=== PATIENT | male | born 1970 | race Caucasian/White ===

== ENCOUNTER 2018-05-09 08:11 | Outpatient (REF) | payer OTHER, SELFPAY ==
[2018-05-09 12:15] LABS: Abs Immature Grans 0.01 k/cumm (0.0-0.09); Absolute Basophil Count 0.03 k/cumm (0.0-0.2); Absolute Eosinophil Count 0.22 k/cumm (0.0-0.7); Absolute Lymphocyte Count 1.91 k/cumm (1.2-3.4); Absolute Monocyte Count 0.74 k/cumm (0.11-0.7); Absolute Neutrophil Count 4.14 k/cumm (1.2-6.7); Basophils % 0.4; Eosinophils % 3.1; HCT 45.8 % (40.0-50.0); HGB 15.6 g/dL (13.5-17.5); Immature Grans % 0.1; Lymphocytes % 27.1; Mean Corp. HGB Concentration 34.1 g/dL (32.0-36.0); Mean Corpuscular Hemoglobin 30.3 pg (27.0-33.0); Mean Corpuscular Volume 88.9 fL (80-95); Mean Platelet Volume 10.2 fL (8.0-11.0); Monocytes % 10.5; Neutrophils % 58.8; Platelet Count 253 x1000/uL (130-400); RBC 5.15 m/cumm (4.50-6.00); RBC Distribution Width 12.6 % (11.8-14.1); White Blood Cell Count 7.05 k/cumm (4.4-10.8)
[2018-05-09 12:37] LABS: ALT 26 U/L (12-78); AST 26 U/L (15-37); Albumin 4.3 g/dL (3.4-5.0); Alkaline Phosphatase 92 U/L (46-116); Anion Gap 8.5 mmol/L (3-11); BUN 17 mg/dL (7-18); Bilirubin, Total 0.7 mg/dL (0.2-1.0); CO2 28.5 mmol/L (21.0-32.0); CREATININE 1.08 mg/dL (0.70-1.30); Calcium 9.5 mg/dL (8.5-10.1); Chloride 103 mmol/L (98-107); Cholesterol 204 mg/dL (50-200); Glucose 92 mg/dL (70-100); HDL Cholesterol 42 mg/dL (40-60); LDL CHOLESTEROL 141 mg/dL (<100); Potassium 4.3 mmol/L (3.5-5.1); Sodium 140 mmol/L (136-145); TSH (W/Ref FT4) 1.02 uIU/mL (0.358-3.74); Total Protein 7.7 g/dL (6.4-8.2); Triglyceride 102 mg/dL (30-150)
[2018-05-10 11:34] LABS: Lyme Ab w Rflx to Lyme Confirm Negative
[2018-05-11 18:06] LABS: Anaplasma phagocytophilum Negative (Negative); B. miyamotoi PCR Negative (Negative); Babesia divergens/MO-1 Negative (Negative); Babesia duncani Negative (Negative); Babesia microti Negative (Negative); Ehrlichia chaffeensis Negative (Negative); Ehrlichia ewingii/canis Negative (Negative); Ehrlichia muris eauclairensis Negative (Negative)
== END 2018-05-09 08:31 ==
LOC: NCHCN 08:11
PROVIDERS: PCP Nurse Practitioner Family; Visit Provider Nurse Practitioner Family
DX: Z00.00 Encounter for general adult medical examination without abnormal findings (principal); M25.539 Pain in unspecified wrist; E78.5 Hyperlipidemia, unspecified; R53.83 Other fatigue
CPT/HCPCS: 80053; 80061; 83721; 84443; 85025; 86618; 87798

== ENCOUNTER 2018-05-15 16:39 | Outpatient (REF) | payer OTHER, SELFPAY ==
[2018-05-17 09:59] LABS: HIV-1/2 Ag & Ab Screen Negative (NEGAT)
[2018-05-17 12:28] LABS: Chlamydia Result Negative; GC Result Negative; Specimen Description URINE
[2018-05-17 12:49] LABS: Syphilis Serology (RPR) Negative (Negative)
== END 2018-05-15 16:59 ==
LOC: NCHCN 16:39
PROVIDERS: PCP Nurse Practitioner Family; Visit Provider Nurse Practitioner Family
DX: Z11.4 Encounter for screening for human immunodeficiency virus [HIV] (principal); Z11.3 Encounter for screening for infections with a predominantly sexual mode of transmission
CPT/HCPCS: 87389; 87491; 87591; 86592

== ENCOUNTER 2019-05-13 13:19 | Outpatient (REF) | payer SELFPAY ==
[2019-05-13 14:14] LABS: Abs Immature Grans 0.01 k/cumm (0.0-0.09); Absolute Basophil Count 0.03 k/cumm (0.0-0.2); Absolute Lymphocyte Count 2.34 k/cumm (1.2-3.4); Absolute Neutrophil Count 3.39 k/cumm (1.2-6.7); Basophils % 0.4; Eosinophils % 4.5; HGB 15.1 g/dL (13.5-17.5); Immature Grans % 0.1 %; Lymphocytes % 35.1; Mean Corp. HGB Concentration 33.6 g/dL (32.0-36.0); Mean Corpuscular Hemoglobin 29.8 pg (27.0-33.0); Mean Corpuscular Volume 88.8 fL (80-95); Mean Platelet Volume 10.4 fL (8.0-11.0); Neutrophils % 50.9; Platelet Count 289 x1000/uL (130-400); RBC 5.07 m/cumm (4.50-6.00); RBC Distribution Width 12.9 % (11.8-14.1); White Blood Cell Count 6.67 k/cumm (4.4-10.8)
[2019-05-13 14:18] LABS: ALT 30 U/L (16-63); AST 26 U/L (15-37); Albumin 4.1 g/dL (3.4-5.0); Alkaline Phosphatase 88 U/L (46-116); Anion Gap 11.5 mmol/L (3-11); BUN 15 mg/dL (7-18); Bilirubin, Total 0.7 mg/dL (0.2-1.0); CO2 26.5 mmol/L (21.0-32.0); CREATININE 0.88 mg/dL (0.70-1.30); Calcium 9.2 mg/dL (8.5-10.1); Calculated LDL 144 mg/dL (<100); Chloride 102 mmol/L (98-107); Cholesterol 214 mg/dL (<200); Glucose 99 mg/dL (74-106); HDL Cholesterol 41 mg/dL (40-60); Potassium 3.9 mmol/L (3.5-5.1); Sodium 140 mmol/L (136-145); Total Protein 7.4 g/dL (6.4-8.2); Triglyceride 146 mg/dL (<150)
== END 2019-05-13 13:39 ==
LOC: NCHCN 13:19
PROVIDERS: PCP Nurse Practitioner Family; Visit Provider Nurse Practitioner Family
DX: Z00.00 Encounter for general adult medical examination without abnormal findings (principal); Z13.228 Encounter for screening for other metabolic disorders; Z13.220 Encounter for screening for lipoid disorders; Z13.0 Encounter for screening for diseases of the blood and blood-forming organs and certain disorders involving the immune mechanism
CPT/HCPCS: 80053; 80061; 85025

== ENCOUNTER 2019-05-20 13:15 | Outpatient (REF) | payer OTHER, SELFPAY ==
[2019-05-22 11:53] LABS: HIV-1/2 Ag & Ab Screen Negative (Negative); Hepatitis C Ab w Rflx HCV PCR Negative (Negative)
== END 2019-05-20 13:35 ==
LOC: NCHCN 13:15
PROVIDERS: PCP Nurse Practitioner Family; Visit Provider Nurse Practitioner Family
DX: Z11.3 Encounter for screening for infections with a predominantly sexual mode of transmission (principal); Z11.4 Encounter for screening for human immunodeficiency virus [HIV]; Z11.59 Encounter for screening for other viral diseases
CPT/HCPCS: 86803; 87389

== ENCOUNTER 2019-11-16 16:15 | Emergency (ER) | payer OTHER, SELFPAY ==
[2019-11-16] MEDS: HYDROmorphone 2 MG/ML VIAL (16:20)
[2019-11-16 16:22] VITALS: BP 119/74; PULSE 80; RESP 20; TEMP 37.1; O2SAT 99
--- NOTE | 2019-11-16 16:29 | W.ED.GENAD ---
Discharge Plan Disposition Patient Disposition: HOME Condition: Stable Discharge Details Chief Complaint: Orthopedic Clinical Impression: Closed dislocation of left patella Primary Care Provider: Fer Mccarthy ED Provider: Seth Lechuga Home Meds and New Rx's Prescriptions: No Action No Known Home Meds RF: 0 Discharge Instructions Instructions: Patellar Dislocation (ED), Knee Immobilizer (ED) Additional Instructions: Please use knee immobilizer and crutches until cleared. Follow-up with orthopedics. Call for an appointment. Please take acetaminophen (tylenol) - 650mg every 6 hours by mouth as needed for pain. Please take ibuprofen over the counter. Take 600mg by mouth every 6 hours as needed for pain. Referrals: [facility] [Provider Group] Medical Decision Making 49-year-old male here with left patellar dislocation. Patellar dislocation was reduced by gently extending the leg at knee and manually reducing patella. Patellar tendon is intact. X-ray of the knee was reviewed and interpreted by radiology: No acute fracture dislocation. Knee immobilizer applied and crutches provided. Patient was instructed to follow-up with orthopedics. HPI General Mode of arrival: EMS. Date/Time Provider Initiated Documentation: 11/16/19 16:29. Limitations to Documentation: no limitations. Information obtained by: patient and EMS. HPI Narrative: 49-year-old male presents with chief complaint of left knee pain. Patient was lifting an organ and his leg gave out and he sustained dislocation. He notes in the past he dislocated his right knee but has never dislocated left patella. Pain is severe, constant since injury about 1 hour ago, worse with any attempted movement. No numbness or tingling. Related Data Home Medications Medication Instructions Recorded Confirmed Unknown [No Known Home Meds] 11/16/19 11/16/19 Allergies Allergy/AdvReac Type Severity Reaction Status Date / Time No Known Allergies Allergy Unverified 11/16/19 16:31 Review of Systems Musculoskeletal Musculoskeletal: Reports as per HPI Neurologic Neurologic: Reports as per HPI [facility] Social History Smoking/Tobacco Use Status: Never Alcohol Intake: current Alcohol Intake frequency: 0-2 drinks per day Alcohol type: beer Drug use: Never Substance use type: does not use Do you feel safe at home: Yes Do you feel safe in your relationship?: Yes Exam Const General: cooperative and uncomfortable HENMT Head: normocephalic and atraumatic Mouth: moist mucous membranes Resp Auscultation: clear to auscultation bilaterally, no rales, no rhonchi and no wheezes Cardio Rate: tachycardic Rhythm: regular rhythm Skin General skin exam: no rashes or lesions noted Neuro General: patient alert, patient awake and tone normal Extrem General: no edema Left lower extremity: knee Details: other (Left patellar dislocation) Psych Appearance: grossly normal Mental Status: mental status grossly normal Course Vital Signs Vital signs: Pain Level 10 11/16/19 16:20
--- NOTE | 2019-11-16 17:01 | NUR.NOTE ---
Nursing Note: Amy- sister in law's phone number. Verbal consent from pt to speak with her about visit and treatment today. She would transport home if needed. [phone]
--- NOTE | 2019-11-16 17:15 | DI.RAD_ITS ---
EXAM: XR KNEE LT 4V AP,LAT,ACE,PAT CLINICAL HISTORY: pain, patellar dislocation. TECHNIQUE: 2D digital imaging was performed. COMPARISON: No exams were available for comparison FINDINGS: BONES: No acute fracture is present. No bony destructive lesion is seen. JOINTS: There are mild degenerative changes.. No joint effusion is seen. SOFT TISSUE: Normal. IMPRESSION: No acute abnormality. DATA REPOSITORY: RADIATION DOSE DELIVERED:
[2019-11-16] MEDS: Acetaminophen 325 MG TAB 650 MG PO (17:24)
[2019-11-16] MEDS: Ibuprofen 600 MG TAB PO (17:24)
--- NOTE | 2019-11-16 17:46 | DI.VRAD_ITS ---
PROCEDURE INFORMATION: Exam: XR Left Knee Exam date and time: 11/16/2019 5:34 PM Age: 49 years old Clinical indication: Injury or trauma; Fall; Initial encounter; Swelling (edema); Knee; Left TECHNIQUE: Imaging protocol: XR Left knee. Views: 4 or more views. COMPARISON: No relevant prior studies available. FINDINGS: Bones/joints: No acute fracture or dislocation. There are mild marginal osteophytes. Soft tissues: Normal. IMPRESSION: No acute fracture or dislocation. Dictated and Authenticated by: Tyrone Mendoza MD. Ordering:ROMEO Ann MD
[2019-11-16 18:17] VITALS: BP 124/68; PULSE 72; RESP 16; O2SAT 98
== END 2019-11-16 18:15 | disposition home or self-care (01) ==
LOC: ER 17:49
PROVIDERS: Emergency Provider Student in an Organized Health Care Education/Training Program; PCP Nurse Practitioner Family
DX: S83.095A Other dislocation of left patella, initial encounter (principal); X50.0XXA Overexertion from strenuous movement or load, initial encounter
CPT/HCPCS: 27560; 96372; 73564; E0114; L1830

== ENCOUNTER 2020-06-14 10:15 | Outpatient (REF) | payer OTHER, SELFPAY ==
[2020-06-14 15:25] LABS: HCT 43.6 % (40.0-50.0); HGB 14.7 g/dL (13.5-17.5); MCH 30.3 pg (27.0-33.0); MCHC 33.7 % (32.0-36.0); MCV 89.9 fL (80-95); MPV 10.7 fL (8.0-11.0); Platelet Count 251 10^3/uL (130-400); RBC 4.85 10^6/uL (4.36-5.78); RDW 12.5 % (11.8-14.1); RDW-SD 41.3 fL; WBC 6.41 10^3/uL (4.4-10.8)
[2020-06-14 15:55] LABS: ALT 26 U/L (16-63); AST 20 U/L (15-37); Albumin 4.1 g/dL (3.4-5.0); Alkaline Phosphatase 74 U/L (46-116); BUN 12 mg/dL (7-18); Bilirubin, Total 0.3 mg/dL (0.2-1.0); Calcium 9.1 mg/dL (8.5-10.1); Calculated LDL 104 mg/dL (<100); Chloride 106 mmol/L (98-107); Cholesterol 163 mg/dL (<200); Glucose 94 mg/dL (74-106); HDL Cholesterol 40 mg/dL (40-60); Potassium 4.8 mmol/L (3.5-5.1); Sodium 141 mmol/L (136-145); Total Protein 7.2 g/dL (6.4-8.2); Triglyceride 96 mg/dL (<150)
[2020-06-15 09:29] LABS: HBs Antibody, Quant <3.1 mIU/mL (See Note); Hepatitis B Surface Ab Negative (See Note)
[2020-06-15 09:38] LABS: Hepatitis B Surface Ag Negative (Negative)
[2020-06-15 10:23] LABS: Hepatitis C Ab w Rflx HCV PCR Negative (Negative)
[2020-06-15 10:37] LABS: HIV-1/2 Ag & Ab Screen Negative (Negative)
[2020-06-15 11:18] LABS: Syphilis Serology (RPR) Negative (Negative)
[2020-06-15 14:13] LABS: Chlamydia Result Negative (Negative); GC Result Negative (Negative)
== END 2020-06-14 10:16 | disposition home or self-care (01) ==
LOC: NCHCN 10:15
PROVIDERS: PCP Nurse Practitioner Family; Visit Provider Nurse Practitioner Family
DX: E78.5 Hyperlipidemia, unspecified (principal); Z11.3 Encounter for screening for infections with a predominantly sexual mode of transmission; Z11.4 Encounter for screening for human immunodeficiency virus [HIV]; Z11.59 Encounter for screening for other viral diseases
CPT/HCPCS: 80053; 80061; 85027; 86706; 86803; 87340; 87389; 87491; 87591; 86592

== ENCOUNTER 2021-06-10 18:22 | Outpatient (REF) | payer OTHER, SELFPAY ==
[2021-06-10 17:29] LABS: Anion Gap 8.5 mmol/L (3-11); BUN 22 mg/dL (7-18); CO2 27.5 mmol/L (21.0-32.0); CREATININE 1.1 mg/dL (0.70-1.30); Calculated LDL 182 mg/dL (<100); Chloride 106 mmol/L (98-107); Cholesterol 244 mg/dL (<200); Glucose 92 mg/dL (74-106); HDL Cholesterol 40 mg/dL (40-60); Potassium 4.2 mmol/L (3.5-5.1); Sodium 142 mmol/L (136-145); Triglyceride 112 mg/dL (<150)
== END 2021-06-10 18:23 | disposition home or self-care (01) ==
LOC: NCHCN 18:22
PROVIDERS: PCP Nurse Practitioner Family; Visit Provider Physician Assistant
DX: E78.5 Hyperlipidemia, unspecified (principal)
CPT/HCPCS: 80048; 80061

== ENCOUNTER 2021-07-21 15:46 | Outpatient (REF) | payer OTHER, SELFPAY ==
[2021-07-22 12:46] LABS: COVID-19 RT-PCR UVMMC Result Negative (Negative)
== END 2021-07-21 15:47 | disposition home or self-care (01) ==
LOC: LBN 15:46
PROVIDERS: PCP Nurse Practitioner Family; Visit Provider Nurse Practitioner Family
DX: R05.8 Other specified cough (principal); Z20.822 Contact with and (suspected) exposure to COVID-19
CPT/HCPCS: U0003

== ENCOUNTER 2021-12-14 15:48 | Outpatient (REF) | payer OTHER, SELFPAY ==
[2021-12-14 15:52] LABS: Anion Gap 9.8 mmol/L (3-11); BUN 20 mg/dL (7-18); CO2 26.2 mmol/L (21.0-32.0); Calcium 9.5 mg/dL (8.5-10.1); Calculated LDL 139 mg/dL (<100); Chloride 102 mmol/L (98-107); Cholesterol 207 mg/dL (<200); Estimated GFR 92.26 (mL/min/1.73m2); Glucose 93 mg/dL (74-106); HDL Cholesterol 48 mg/dL (40-60); Potassium 4.7 mmol/L (3.5-5.1); Sodium 138 mmol/L (136-145); Triglyceride 102 mg/dL (<150)
== END 2021-12-14 15:49 | disposition home or self-care (01) ==
LOC: NCHCN 15:48
PROVIDERS: Visit Provider Physician Assistant
DX: E78.5 Hyperlipidemia, unspecified (principal)
CPT/HCPCS: 80048; 80061

== ENCOUNTER 2022-06-19 12:32 | Outpatient (REF) | payer OTHER, SELFPAY ==
[2022-06-19 15:06] LABS: Calculated LDL 114 mg/dL (<100); Cholesterol 207 mg/dL (<200); HDL Cholesterol 46 mg/dL (40-60); Triglyceride 235 mg/dL (<150)
== END 2022-06-19 12:33 | disposition home or self-care (01) ==
LOC: NCHCN 12:32
PROVIDERS: PCP Physician Assistant; Visit Provider Physician Assistant
DX: E78.5 Hyperlipidemia, unspecified (principal)
CPT/HCPCS: 80061

== ENCOUNTER 2023-02-19 07:32 | Day surgery (SDC) | payer OTHER, SELFPAY ==
--- NOTE | 2023-02-18 18:39 | W.PM.DSUDISC ---
Date of service: 02/19/23 Time of Service: 08:56 Discharge Plan Disposition Patient Disposition: Home Condition: Good Discharge Details Reason For Visit: screening colonoscopy Attending Provider: Misael Cavazos Primary Care Provider: Jm Messina Home Meds and New Rx's Prescriptions: Continued triamcinolone acetonide 0.5 % cream 1 applic topical BID Discontinued bisacodyl [Dulcolax (bisacodyl)] 5 mg tablet,delayed release (DR/EC) 5 mg PO ONCE Qty: 4 0RF Rx Instructions: Take per colonoscopy instructions provided by ordering providers office polyethylene glycol 3350 17 gram/dose powder 17 g PO ONCE Qty: 238 0RF Rx Instructions: Take per colonoscopy instructions provided by ordering providers office polyethylene glycol 3350 17 gram/dose powder 17 g PO ONCE Qty: 238 0RF Rx Instructions: Take per colonoscopy instructions provided by ordering providers office bisacodyl [Dulcolax (bisacodyl)] 5 mg tablet,delayed release (DR/EC) 5 mg PO ONCE Qty: 4 0RF Rx Instructions: Take per colonoscopy instructions provided by ordering providers office Discharge Instructions Instructions: Colorectal Polyps (GEN) Additional Instructions: Kaleb, we were able to complete your colonoscopy today without any difficulty. I did find 2 small polyps. I removed these both completely. In fact, 1 might not even be a true polyp. Regardless, I will send both of them off for testing to determine the true nature. Once I have that information, I will be in touch with my recommendations for your next colonoscopy. In the meantime, if you have any questions, please do not hesitate to call at any time. 1. If tolerated, consume a soft, low fiber diet for 1-2 days. [address] Do not drive, drink alcohol, operate machinery, make critical decisions, or do activities that require coordination or balance for 24 hours. 3. Because air was put into your colon during the procedure, expelling air from your rectum (passing gas or farting) is normal. 4. You may not have a bowel movement for 1-3 days because of the colonoscopy prep. This is normal. 5. Go directly to the emergency room if you notice any of the following: Develop chills (warm to touch), or if you have a thermometer and your temperature is above 101 Difficulty breathing or difficultly swallowing Persistent vomiting Severe abdominal pain, other than gas cramps Severe chest pain Black, tarry stools Any bleeding ? exceeding one tablespoon 6. Call your physician if the site where your intravenous was started becomes red, swollen, painful, and warm to touch. 7. Your physician has reviewed your pre-procedure medications. Please continue to take those medications as previously ordered. You will be given specific information/education regarding any changes to your medications before leaving. Activity:: Activity as Tolerated Diet:: As Tolerated Discharge Orders Discharge Orders: Discharge Order (Routine); Ordered 02/18/23 Ordered By: Misael Cavazos DS: Diagnosis Discharge Diagnosis (1) Screen for colon cancer: Status: Acute Asessment and Plan: I will follow-up on polypectomy results
--- NOTE | 2023-02-18 18:45 | W.COLOREPORT ---
Date of service: 02/19/23 Time of Service: 08:57 Colonoscopy Report Date of procedure: 02/19/23 Pre-op diagnosis general: screening colonoscopy Post-op diagnosis procedure note: other (Colon polyps) Procedure: Colonoscopy with polypectomy Surgeon: Misael Cavazos Anesthesia Type: General:No Airway Estimated blood loss (mL): 5 Pathology: other (0.25 cm cecal polyp, 0.5 cm polyp at 70 cm) Complications: None Disposition: same day Indications: Kaleb is 52 years old and he needs a screening colonoscopy Prep: Miralax/Dulcolax Procedure Start Time: 08:24 Procedure End Time: 08:41 Retraction Time: 9 Findings: 0.25 cm cecal polyp, 0.5 cm polyp at 70 cm Procedure Description: After the induction of monitored anesthetic care, and with the patient in left lateral decubitus position, I began by performing an external anorectal exam.? Perineum and skin were normal, as was the anal verge.? There was no evidence of external hemorrhoids.? Next, I performed a digital rectal exam.? I did not appreciate any abnormal findings.? Next, I advanced a colonoscope into the rectal vault.? I performed retroflexion.? This was normal.? Using insufflation, I then advanced the colonoscope beyond the rectal folds and into the sigmoid colon before advancing towards the cecum.? The scope was noted to be in the cecum by identification of the ileocecal valve and appendiceal orifice.? Within the cecum is a 0.25 cm flat polyp. I removed this with cold forceps polypectomy. There was no issues. I then began withdrawing the colonoscope using repeated irrigation as necessary for full evaluation of the colonic mucosa. Around 70 cm from the anal verge I identified a 0.5 cm polyp. ?It appeared mostly flat, but slightly elevated in character. ?I was able to remove this with a cold forceps. ?I examined the site, and there was minimal bleeding. ?Once this was completed, I continued to withdraw the scope and examine the remainder of the colonic mucosa.?Once the scope was withdrawn to the level of the rectum, great care was taken to examine portions of the rectal folds.? Finally, the scope was withdrawn and the patient was brought to the same-day surgery recovery unit as the anesthetic wore off. ?The findings and instructions were shared with the patient prior to discharge. [place] Bowel Prep [place] Bowel Prep Right Colon: 3 Left Colon: 3 Transverse Colon: 3 Total Score: 9
[2023-02-19 07:48] VITALS: BP 105/78; PULSE 80; RESP 20; TEMP 36.3; O2SAT 97
[2023-02-19] MEDS: Lactated Ringers 1,000 ML 80 ML IV (08:05)
[2023-02-19 08:11] VITALS: BMI 24.9
--- NOTE | 2023-02-19 08:11 | W.ANESPRE ---
General Info Date of Service Date Performed: 02/19/23 Height: 5 ft 6 in Weight: 70 kg Body Mass Index (BMI): 24.9 Surgical Procedure: Operation Date: 02/19/23 09:50 Proposed Procedure Side Surgeon p Colonoscopy Misael Cavazos MD Actual Procedure Side Surgeon p Colonoscopy Not Applicable Misael Cavazos MD Pre-Op Diagnosis Post-Op Diagnosis screening colonoscopy Meds Allergies and Home Medications Allergies Allergy/AdvReac Type Severity Reaction Status Date / Time No Known Allergies Allergy Verified 02/19/23 07:47 Home Medication Medication Instructions Recorded triamcinolone acetonide 0.5 % 1 applic topical BID 12/28/22 topical cream Current Visit Medications: Current Medications Generic Name Dose Route Start Last Admin Trade Name Freq PRN Reason Stop Dose Admin Hyoscyamine Sulfate 0.125 mg 02/18/23 18:46 Hyoscyamine 0.125 Mg Sl/Oral/Chew SL 03/20/23 18:45 DIRECTED PRN Ringer's Solution 1,000 mls @ 80 mls/hr 02/19/23 06:00 IV 02/19/23 23:59 INFUSION COUNT INCLUDES THE [facility] IV Miscellaneous Supplies 1 each 02/19/23 06:00 Iv Access IV 02/19/23 23:59 DIRECTED REJI Ondansetron HCl 4 mg 02/18/23 18:46 Ondansetron 4 Mg/2 Ml Vial IVP 03/20/23 18:45 Q4H PRN PRN Nausea / Vomiting Sodium Chloride 0 ml 02/19/23 06:00 Normal Saline Flush 10 Ml Syr IV 02/19/23 23:59 PRN PRN Sodium Chloride 0 ml 02/19/23 06:00 Normal Saline 10 Ml Vial IJ 02/19/23 23:59 DIRECTED PRN Sterile Water 0 ml 02/19/23 06:00 Water,Injection,Sterile 10 Ml Vial IJ 02/19/23 23:59 DIRECTED PRN PFSH Active Problems Active Problems: Problem Status Onset Code Screen for colon cancer Z12.11 Patellar dislocation 12/16/19 S83.006A Medical History Medical History Impacted cerumen, bilateral Tinnitus Hyperlipidemia Surgical History Surgical History History of orthopedic surgery hx of surgical procedure on finger Tobacco Smoking/Tobacco Use Status: Never Alcohol Alcohol Intake: current Alcohol intake frequency: a few times a week Alcohol type: beer, wine, hard liquor and other Substance Use Substance use: Never Substance use type: does not use Vital Signs and Lab Results Vital Signs Most Recent Vital Signs in EMR: Most Recent Vital Signs Temp Pulse Resp BP Pulse Ox 36.3 C L 80 20 105/78 97 02/19/23 07:48 02/19/23 07:48 02/19/23 07:48 02/19/23 07:48 02/19/23 07:48 Lab Results Blood Type / Crossmatch: No Data to Display Complete Blood Count: No Data to Display Complete Metabolic Panel: No Data to Display Liver Function Panel: No Data to Display Coagulation Panel: No Data to Display Cardiac Panel: No Data to Display Arterial Blood Gas: No Data to Display Venous Blood Gas: No Data to Display Pancreas Panel: No Data to Display Thyroid Panel: No Data to Display Infectious Disease: No Data to Display Blood Cultures: No Data to Display Toxicology Panel: No Data to Display Anesthesia Assessment and Plan Anesthesia History Personal History: No History of Anesthesia Complications Family History: No Family History of Anesthesia Complications Exercise Tolerance Exercise Tolerance: Metabolic Equivalents>4 Pertinent Negatives Pertinent Negatives: No Symptoms of GERD Cardiac & Pulmonary Exam Cardiac Exam: Normal S1/S2 Heart Sounds Pulmonary Exam: Clear Bilateral Breath Sounds Implantable Cardiac Device Does patient have a Pacemaker or an ICD?: No Airway Exam Known Difficult Airway: No Mallampati Class: 2 Mouth Opening: Normal (> 3cm) Thyromental Distance: Greater than 3 cm Facial Hair: Full Fonseca Neck Range of Motion: Full ROM Neck Circumference: Normal Teeth Condition: Normal Dentition ASA Classification ASA Score: ASA 2 Emergency Case?: No NPO Status NPO Status: NPO Clears >2 hours, Solids >8 hours Anesthesia Plan Resuscitation Status: Full Code Anesthesia Technique: General Anesthesia Airway Planned: Natural Airway Monitors Used: Standard Monitors
--- NOTE | 2023-02-19 08:33 | BOWEL_PTH ---
PATIENT: Kaleb Rider LOC: [facility] U#:[id number] AGE/SX: 52/M ROOM: RE02/19/[address]: Misael Cavazos MD : 1970 BED: DIS: 02/19/2023 SPEC #: [id number] RECD: 02/19/23 12:59 STATUS: JUAN MANUELTevin RE #: [id number] DEANNA: 02/19/23 08:[address]: Misael Cavazos DEPT: Surgical Specimen RECD BY: Mickie Mendoza ENTERED: 02/19/23 13:00 SP TYPE: Bowel OTHR DR: Jm Messina Tissues: 1 - BIOPSY BOWEL 2 - BIOPSY BOWEL Procedures: GROSS AND MICRO LEVEL 4 Comments: [id number]
[2023-02-19 08:54] VITALS: BP 89/66; PULSE 73; RESP 18; TEMP 36.5; O2SAT 94
--- NOTE | 2023-02-19 08:56 | W.ANESPOSTOP ---
Postoperative Evaluation Date, Time and Location Date Performed: 02/19/23 Time Performed: 08:56 Patient Location: Day Surgery Unit Vital Signs Most Recent Imported Vital Signs: Most Recent Vital Signs Temp Pulse Resp BP Pulse Ox 36.3 C L 80 20 105/78 97 02/19/23 07:48 02/19/23 07:48 02/19/23 07:48 02/19/23 07:48 02/19/23 07:48 Pain Score Most Recent Pain Score: Most Recent Pain Score Pain Level 0 02/19/23 07:48 Assessment Mental Status: Awake (Alert & Oriented to Patient Baseline) Airway and Respiratory Function: Patent airway with normal (patient baseline) respiratory exam Cardiovascular Function: Hemodynamically Stable Hydration Status: Adequately Hydrated Nausea & Vomiting: No Nausea or Vomiting Pain: Pt. Denies Any Pain Peripheral Nerve Block: Patient did not receive a nerve block
[2023-02-19 09:17] VITALS: BP 101/79; PULSE 69; RESP 18; O2SAT 100
== END 2023-02-19 09:20 | disposition home or self-care (01) ==
LOC: SUR 07:33
PROVIDERS: PCP Physician Assistant; Visit Provider Surgery
PROC: 0DJD8ZZ Inspection of Lower Intestinal Tract, Via Natural or Artificial Opening Endoscopic (ICD-10-PCS; CPT 45378; principal; 2023-02-19 09:45)
DX: Z12.11 Encounter for screening for malignant neoplasm of colon (principal); D12.4 Benign neoplasm of descending colon
CPT/HCPCS: 45380; 88305; J2001

== ENCOUNTER 2023-06-27 13:58 | Outpatient (REF) | payer OTHER, SELFPAY ==
[2023-06-27 17:19] LABS: ALT 41 U/L (16-63); AST 39 U/L (15-37); Alkaline Phosphatase 70 U/L (46-116); BUN 14 mg/dL (7-18); Calcium 8.8 mg/dL (8.5-10.1); Chloride 102 mmol/L (98-107); Cholesterol 239 mg/dL (<200); Glucose 86 mg/dL (74-106); Potassium 3.8 mmol/L (3.5-5.1); Sodium 139 mmol/L (136-145); Total Protein 7.1 g/dL (6.4-8.2); Triglyceride 177 mg/dL (<150)
[2023-06-27 17:58] LABS: Bilirubin, Total 0.6 mg/dL (0.2-1.0); CREATININE 1.1 mg/dL (0.70-1.30); Calculated LDL 161 mg/dL (<100); Estimated GFR 81.78 (mL/min/1.73m2); HDL Cholesterol 43 mg/dL (40-60)
[2023-06-27 22:45] LABS: PSA, Screening 0.6 ng/mL (<=3.5)
== END 2023-06-27 13:59 | disposition home or self-care (01) ==
LOC: NCHCN 13:58
PROVIDERS: PCP Physician Assistant; Visit Provider Physician Assistant
DX: Z00.00 Encounter for general adult medical examination without abnormal findings (principal); E78.5 Hyperlipidemia, unspecified; Z12.5 Encounter for screening for malignant neoplasm of prostate
CPT/HCPCS: 80053; 80061; 84153

== ENCOUNTER 2023-12-21 02:07 | Outpatient (CLI) | payer OTHER, SELFPAY ==
--- OUTSIDE RECORDS SUMMARY | 2023-12-21 02:10 | XMS_ITS | Encounter Summary ---
Author Organization [facility] Address [address] [place] [address] Care Team Providers Care Flame Cutting Supervisor Name Role Phone Unknown, Provider Primary Care Provider Encounter Details Date Type Department Care Team (Late st Contact Info) Description 06/14/2020 Lab Requisition [facility] Pathology & Laboratory Medicine - [facility] [address] [place] [address] Outr Resulting Lab, Provider Social History Tobacco Use Types Packs/Day Years Used Date Smoking Tobacco: Never Assessed Interpersonal Safety Answer Date Record ed Physically Hurt Never 02/03/2020 Verbally Threaten Not on file 02/03/2020 Sex and Gender Information Value Date Recorded Sex Assigned at Not on file Gender Identity Not on file Sexual Orientation Not on file documented as of this encounter Plan of Treatment Not on file documented as of this encounter Procedures Procedure Name Priority Date/Time Associated Diagnosis Comments SYPHILIS SEROLOGY Routine 06/14/2020 9:30 EDT documented in this encounter Results * SYPHILIS SEROLOGY (06/14/2020 9:30 EDT) Syphilis Serology Negative Negative 06/15/2020 11:13 EDT [facility] Blood VENOUS BLOOD / Unknown 06/14/2020 9:30 EDT 06/14/2020 20:33 EDT Provider Outr Resulting Lab IMMUNOLOGY A ND SEROLOGY ORDERABLES [facility] [address] [place] [address] documented in this encounter Visit Diagnoses Not on filedocumented in this encounter Care Teams Flame Cutting Supervisor Relationship Specialty Start Date End Date Unknown, Provider, PCP - General 01/10/23 documented as of this encounter
--- OUTSIDE RECORDS SUMMARY | 2023-12-21 02:10 | XMS_ITS | Encounter Summary ---
Author Organization [facility] Address [address] [place] [address] Care Team Providers Care Recruitment Specialist Name Role Phone Unknown, Provider Primary Care Provider [phone] Encounter Details Date Type Department Care Team (Late st Contact Info) Description 05/21/2019 Lab Requisition [facility] Pathology & Laboratory Medicine - [facility] [address] [place] [address] Unknown, Provider, Social History Tobacco Use Types Packs/Day Years Used Date Smoking Tobacco: Never Assessed Sex and Gender Information Value Date Recorded Sex Assigned at Not on file Gender Identity Not on file Sexual Orientation Not on file documented as of this encounter Plan of Treatment Not on file documented as of this encounter Procedures Procedure Name Priority Date/Time Associated Diagnosis Comments HEPATITIS C AB W REFLEX TO HCV RNA BY PCR Routine 05/20/2019 11:50 EDT documented in this encounter Results * HEPATITIS C AB W REFLEX TO HCV RNA BY PCR (05/20/2019 11:50 EDT) Hep C Antibody Negative Negative 05/22/2019 11:29 EDT [facility] Blood VENOUS BLOOD / Unknown 05/20/2019 11:50 EDT 05/21/2019 15:40 EDT Provider Unknown CHEMISTRY & BLOOD GA S ORDERABLES [facility] [address] [place] [address] documented in this encounter Visit Diagnoses Not on filedocumented in this encounter Care Teams Recruitment Specialist Relationship Specialty Start Date End Date Unknown, Provider, PCP - General 01/10/23 documented as of this encounter
--- OUTSIDE RECORDS SUMMARY | 2023-12-21 02:10 | XMS_ITS | Encounter Summary ---
Author Organization [facility] Address [address] [place] [address] Care Team Providers Care Boilers Inspector Name Role Phone Unknown, Provider Primary Care Provider Encounter Details Date Type Department Care Team (Late st Contact Info) Description 06/14/2020 Lab Requisition [facility] Pathology & Laboratory Medicine - [facility] [address] [place] [address] Outr Resulting Lab, Provider Social History Tobacco [...] REFLEX TO HCV RNA BY PCR Routine 06/14/2020 9:30 EDT HEPATITIS B SURFACE ANTIBODY Routine 06/14/2020 9:30 EDT HEPATITIS B SURFACE ANTIGEN Routine 06/14/2020 9:30 EDT documented in this encounter Results * HEPATITIS B SURFACE ANTIBODY (06/14/2020 9:30 EDT) Hep B Surface Ab, Quantitative <3.1 See Note mIU/mL 06/15/2020 9:24 EDT [facility] Comment: Reference Range for Hep B Surface Ab, Quant: Positive: >= 10.0 mIU/mL Negative: ??< 10.0 mIU/mL Patient is presumed to not be immune to infection with Hepatitis B Virus. Hep B Surface Ab, Qualitative Negative See Note 06/15/2020 9:24 EDT [facility] Comment: Reference Range for Hep B Surface Ab, Qual: Unvaccinated: ??Negative Vaccinated: ??Positive Blood VENOUS BLOOD / Unknown 06/14/2020 9:30 EDT 06/14/2020 20:33 EDT Provider Outr Resulting Lab CHEMISTRY & BLOOD GAS ORDERABLES [facility] [address] [place] [address] * HEPATITIS B SURFACE ANTIGEN (06/14/2020 9:30 EDT) Hep B Surface Ag Negative Negative 06/15/2020 9:33 EDT [facility] Blood VENOUS BLOOD / Unknown 06/14/2020 9:30 EDT 06/14/2020 20:33 EDT Provider Outr Resulting Lab CHEMISTRY & BLOOD GAS ORDERABLES Performing Organization Address [facility]/ZIP Co de Phone Number [facility] [address] [place] [address] * HEPATITIS C AB W REFLEX TO HCV RNA BY PCR (06/14/2020 9:30 EDT) Hep C Antibody Negative Negative 06/15/2020 10:19 EDT [facility] Blood VENOUS BLOOD / Unknown 06/14/2020 9:30 EDT 06/14/2020 20:33 EDT Provider Outr Resulting Lab CHEMISTRY & BLOOD GAS ORDERABLES Performing Organization Address City/[facility]/ZIP Co de Phone Number [facility] [address] [place] [address] documented in this encounter Visit Diagnoses Not on filedocumented in this encounter Care Teams Boilers Inspector Relationship Specialty Start Date End Date Unknown, Provider, PCP - General 01/10/23 documented as of this encounter
--- OUTSIDE RECORDS SUMMARY | 2023-12-21 02:10 | XMS_ITS | Encounter Summary ---
Author Organization [facility] Address [address] [place] [address] Care Team Providers Care Rn Bariatric Name Role Phone Unknown, Provider Primary Care Provider Encounter Details Date Type Department Care Team (Late st Contact Info) Description 06/27/2023 Lab Requisition [facility] Pathology & Laboratory Medicine - [facility] [address] [place] [address] Outr Resulting Lab, Provider Social History Tobacco [...] Procedure Name Priority Date/Time Associated Diagnosis Comments PSA TOTAL, DIAGNOSTIC Routine 06/27/2023 7:45 EDT documented in this encounter Results * PSA TOTAL, DIAGNOSTIC (06/27/2023 7:45 EDT) PSA 0.6 <=3.5 ng/mL 06/27/2023 22:40 EDT [facility] Blood VENOUS BLOOD / Unknown 06/27/2023 7:45 EDT 06/27/2023 21:42 EDT Narrative [facility] - 06/27/2023 22:40 EDT NOTE: Serum PSA concentration should not be interpreted as absolute evidence for the presence or absence of malignant disease. Assayed on Siemens ADVIA Truverisaur XPT using chemiluminescent technology.??Values obtained by using different assay methods cannot be used interchangeably. Provider Outr Resulting Lab CHEMISTRY & BLOOD GAS ORDERABLES [facility] [address] [phone] documented in this encounter Visit Diagnoses Not on filedocumented in this encounter Care Teams Rn Bariatric Relationship Specialty Start Date End Date Unknown, Provider, PCP - General 01/10/23 documented as of this encounter
--- OUTSIDE RECORDS SUMMARY | 2023-12-21 02:10 | XMS_ITS | Encounter Summary ---
Author Organization [facility] Address [address] [place] [address] Care Team Providers Care Computer Numerical Control Operator Name Role Phone Unknown, Provider Primary Care Provider Encounter Details Date Type Department Care Team (Late st Contact Info) Description 02/19/2023 Lab Requisition [facility] Pathology & Laboratory Medicine - [facility] [address], [place] [id number] Misael Cavaozs MD [address] [place] [address], [address] [place], [place] [id number] Encounter for screening for malignant neoplasm of colon Social History Tobacco Use Types Packs/Day Years [...] Procedure Name Priority Date/Time Associated Diagnosis Comments SURGICAL PATHOLOGY Today 02/19/2023 8:33 EST Encounter for screening for malignant neoplasm of colon documented in this encounter Results * SURGICAL PATHOLOGY (02/19/2023 8:33 EST) Note to Patient The following pathology results have been interpreted by your pathologist and may be available to you before your health provider has had the opportunity to review them. Please allow time for your provider to receive these results and explore management options, if applicable. 02/20/2023 17:03 EST [facility] Final Diagnosis A. COLON, CECUM, POLYP, BIOPSY: - Colonic mucosa with no significant diagnostic abnormalities. - No definite polyp identified. - Benign lymphoid aggregates noted. B. COLON, 70 CMS, POLYP, BIOPSY: - Tubular adenoma. 02/20/2023 17:03 [facility] Attestation By the signature below, the attending physician certifies that they have 1) personally conducted a gross and/or microscopic examination of the described specimen(s), and/or personally interpreted the results of laboratory testing of the described specimen(s), and 2) personally rendered or confirmed the above diagnosis. 02/20/2023 17:03 [facility] at 1703 Clinical History Screening colonoscopy/polyp s 02/20/2023 17:03 [facility] Gross Description A. Received in formalin labelled with proper patient identification (initials W, H) and 1. Cecal polyp is a malik tissue (0.5 x 0.3 x 0.1 cm). Entirely submitted in A1. B. Received in formalin labelled with proper patient identification (initials W, H) and 2. Colon polyp at 70 cm is a malik-pink tissue (0.5 x 0.4 x 0.1 cm). Entirely submitted in B1. DOLORES COMBS(ASCP) 02/19/2023 17:20 02/20/2023 17:03 [facility] Performing Lab [facility] 02/20/2023 17:03 [facility] Scanned Images 02/20/2023 17:03 [facility] Tissue COLON STRUCTURE / Unknown 02/19/2023 8:33 EST 02/19/2023 16:33 EST Tissue specimen (specimen) COLON STRUCTURE / Unknown 02/19/2023 8:33 EST 02/19/2023 16:33 EST Misael Cavazos MD PATHOLOGY ORDERABLES [facility] [address] [place] [address] documented in this encounter Visit Diagnoses Diagnosis Encounter for screening for malignant neoplasm of colon Special screening for malignant neoplasms, colon documented in this encounter Care Teams Computer Numerical Control Operator Relationship Specialty Start Date End Date Unknown, Provider, PCP - General 01/10/23 documented as of this encounter
--- OUTSIDE RECORDS SUMMARY | 2023-12-21 02:10 | XMS_ITS | Encounter Summary ---
Author Organization [facility] Address [address] [place] [address] Care Team Providers Care Qa Software Test Engineer Name Role Phone Unknown, Provider Primary Care Provider Encounter Details Date Type Department Care Team (Late st Contact Info) Description 07/21/2021 Lab Requisition [facility] Pathology & Laboratory Medicine - [facility] [address] [place] [address] Outr Resulting Lab, Provider Social History Tobacco [...] Procedure Name Priority Date/Time Associated Diagnosis Comments ZZCOVID-19 TEST [facility] LAB PCR Today 07/21/2021 10:03 EDT COVID-19 TESTING Routine 07/21/2021 10:0 3 EDT documented in this encounter Results * COVID-19 TEST [facility] PCR (07/21/2021 10:03 EDT) Swab 07/21/2021 10:0 3 EDT 07/21/2021 21:37 EDT Provider Outr Resulting Lab MICROBIOLOGY - GENERAL ORDERABLES [facility] [address] [place] [address] * COVID-19 TESTING (07/21/2021 10:03 EDT) COVID-19 rt-PCR Result Negative Negative 07/22/2021 12:40 EDT [facility] Comment: This test has not been FDA cleared or approved. This test has been authorized by FDA under an EUA for use by authorized laboratories. This test has been authorized only for detection of nucleic acid from 2019-nCoV, not for any other viruses or pathogens. This test is only authorized for the duration of the declaration that circumstances exist justifying the authorization of emergency use of in vitro diagnostic tests for detection and/or diagnosis of 2019-nCoV under section 564(b)(1) of Act, 21 U.S.C ?? 360bbb-3(b) (1), unless the authorization is terminated or revoked sooner. Negative results do not preclude 2019-nCoV infection and should not be used as the sole basis for treatment or other patient management decisions. Negative results must be combined with clinical observations, patient history, and epidemiological information. Testing was performed using the susana SARS-CoV-2 assay ([employer] on the Susana 6800 System Performing Lab Susana 68[address] [facility] 07/22/2021 12:40 EDT [facility] Swab 07/21/2021 10:0 3 EDT 07/21/2021 21:37 EDT Provider Outr Resulting Lab MICROBIOLOGY - GENERAL ORDERABLES [facility] [address] [place] [address] documented in this encounter Visit Diagnoses Not on filedocumented in this encounter Care Teams Qa Software Test Engineer Relationship Specialty Start Date End Date Unknown, Provider, PCP - General 01/10/23 documented as of this encounter
--- OUTSIDE RECORDS SUMMARY | 2023-12-21 02:10 | XMS_ITS | Encounter Summary ---
Author Organization [facility] Address [address] [place] [address] Care Team Providers Care Mine Safety Manager Name Role Phone Unknown, Provider Primary Care Provider Encounter Details Date Type Department Care Team (Late st Contact Info) Description 06/14/2020 Lab Requisition [facility] Pathology & Laboratory Medicine - [facility] [address] [place] [address] Outr Resulting Lab, Provider Social History Tobacco [...] Procedure Name Priority Date/Time Associated Diagnosis Comments HIV 1/2 ANTIGEN AND ANTIBODY, 4TH GENERATION Routine 06/14/2020 9:30 EDT documented in this encounter Results * HIV 1/2 ANTIGEN AND ANTIBODY, 4TH GENERATION (06/14/2020 9:30 EDT) HIV 1 and 2 Antibody/p24 Antigen, 4th Generation Negative Negative 06/15/2020 10:31 EDT [facility] Comment: If acute HIV-1 infection is suspected in a high risk ??patient, submit plasma specimen for HIV-1 RNA quantitation test. Fourth Generation assay performed on the Siemens Centaur. Blood VENOUS BLOOD / Unknown 06/14/2020 9:30 EDT 06/14/2020 20:33 EDT Provider Outr Resulting Lab IMMUNOLOGY A ND SEROLOGY ORDERABLES [facility] [address] [place] [address] documented in this encounter Visit Diagnoses Not on filedocumented in this encounter Care Teams Mine Safety Manager Relationship Specialty Start Date End Date Unknown, Provider, PCP - General 01/10/23 documented as of this encounter
--- OUTSIDE RECORDS SUMMARY | 2023-12-21 02:10 | XMS_ITS | Encounter Summary ---
Author Organization [facility] Address [address] [place] [address] Care Team Providers Care Medical/Surgery Registered Nurse Name Role Phone Unknown, Provider Primary Care Provider Encounter Details Date Type Department Care Team (Late st Contact Info) Description 06/14/2020 Lab Requisition [facility] Pathology & Laboratory Medicine - [facility] [address] [place] [address] Outr Resulting Lab, Provider Social History Tobacco [...] Procedure Name Priority Date/Time Associated Diagnosis Comments CHLAMYDIA/N. GONORRHOEAE AMPLIFIED NUCLEIC ACID Routine 06/14/2020 9:30 EDT documented in this encounter Results * CHLAMYDIA/N. GONORRHOEAE AMPLIFIED RNA (06/14/2020 9:30 EDT) Neisseria gonorrhoeae Result Negative Negative 06/15/2020 14:08 EDT [facility] Chlamydia trachomatis Result Negative Negative 06/15/2020 14:08 EDT [facility] Urine URINE / Unknown 06/14/2020 9 :30 EDT 06/14/2020 21:14 EDT Provider Outr Resulting Lab MICROBIOLOGY - GENERAL ORDERABLES [facility] [address] [place] [address] documented in this encounter Visit Diagnoses Not on filedocumented in this encounter Care Teams Medical/Surgery Registered Nurse Relationship Specialty Start Date End Date Unknown, Provider, PCP - General 01/10/23 documented as of this encounter
--- OUTSIDE RECORDS SUMMARY | 2023-12-21 02:10 | XMS_ITS | Encounter Summary ---
Author Organization [facility] Address [address] [place] [address] Care Team Providers Care Learning Specialist Name Role Phone Unknown, Provider Primary Care Provider Encounter Details Date Type Department Care Team (Late st Contact Info) Description 05/21/2019 Lab Requisition [facility] Pathology & Laboratory Medicine - [facility] [address] [place] [address] Unknown, Provider, Social History Tobacco Use Types [...] 1/2 ANTIGEN AND ANTIBODY, 4TH GENERATION Routine 05/20/2019 11:50 EDT documented in this encounter Results * HIV 1/2 ANTIGEN AND ANTIBODY, 4TH GENERATION (05/20/2019 11:50 EDT) HIV 1 and 2 Antibody/p24 Antigen, 4th Generation Negative Negative 05/22/2019 11:29 EDT [facility] Comment: If acute HIV-1 infection is suspected in a high risk ??patient, submit plasma specimen for HIV-1 RNA quantitation test. Fourth Generation assay performed on the Siemens Centaur. Blood VENOUS BLOOD / Unknown 05/20/2019 11:50 EDT 05/21/2019 15:40 EDT Provider Unknown IMMUNOLOGY AND SEROL OGY ORDERABLES [facility] [address] [place] [address] documented in this encounter Visit Diagnoses Not on filedocumented in this encounter Care Teams Learning Specialist Relationship Specialty Start Date End Date Unknown, Provider, PCP - General 01/10/23 documented as of this encounter
--- OUTSIDE RECORDS SUMMARY | 2023-12-21 02:10 | XMS_ITS | Clinical Summary ---
Author Organization [facility] Address [address] [place] [address] Care Team Providers Care Tripe Cooker Name Role Phone Unknown, Provider Primary Care Provider Social History Tobacco Use Types Packs/Day Years Used Date Smoking Tobacco: Never Assessed Interpersonal Safety Answer Date Record ed Physically Hurt Never 02/03/2020 Verbally Threaten Not on file 02/03/2020 Sex and Gender Information Value Date Recorded Sex Assigned at Not on file Gender Identity Not on file Sexual Orientation Not on file Plan of Treatment Health Maintenance Due Date Last Done Comments Hepatitis B Vaccine ( of - 19+ 3-dose series) 10/03/1991 COVID-19 Vaccine ( season) 2022 Hepatitis C Screen Completed 06/14/2020, 05/20/2019 Procedures Procedure Name Priority Date/Time Associated Diagnosis Comments HEPATITIS C AB W REFLEX TO HCV RNA BY PCR Routine 06/14/2020 9:30 EDT from Last 3 Months or Most Recently Relevant to Health Maintenance Results * HEPATITIS C AB W REFLEX TO HCV RNA BY PCR (06/14/2020 9:30 EDT) Hep C Antibody Negative Negative 06/15/2020 10:19 EDT [facility] Blood VENOUS BLOOD / Unknown 06/14/2020 9:30 EDT 06/14/2020 20:33 EDT Provider Outr Resulting Lab CHEMISTRY & BLOOD GAS ORDERABLES [facility] [address] [place] [address] from Last 3 Months or Most Recently Relevant to Health Maintenance Care Teams Tripe Cooker Relationship Specialty Start Date End Date Unknown, Provider, PCP - General 01/10/23
--- OUTSIDE RECORDS SUMMARY | 2023-12-21 02:10 | XMS_ITS | Referral Summary ---
Author Organization [facility] Address [address] [place] [address] Care Team Providers Care Enterprise Data Architect Name Role Phone Unknown, Provider Primary Care Provider Social History Tobacco Use Types Packs/Day Years Used Date Smoking Tobacco: Never Assessed Interpersonal Safety Answer Date Record ed Physically Hurt Never 02/03/2020 Verbally Threaten Not on file 02/03/2020 Sex and Gender Information Value Date Recorded Sex Assigned at Not on file Gender Identity Not on file Sexual Orientation Not on file Plan of Treatment Not on file Procedures Procedure Name Priority Date/Time Associated Diagnosis Comments HEPATITIS C AB W REFLEX TO HCV RNA BY PCR Routine 06/14/2020 9:30 EDT from Last 3 Months or Most Recently Relevant to Health Maintenance Results * HEPATITIS C AB W REFLEX TO HCV RNA BY PCR (06/14/2020 9:30 EDT) Hep C Antibody Negative Negative 06/15/2020 10:19 EDT [facility] Blood VENOUS BLOOD / Unknown 06/14/2020 9:30 EDT 06/14/2020 20:33 EDT Provider Outr Resulting Lab CHEMISTRY & BLOOD GAS ORDERABLES [facility] [address] [place] [address] from Last 3 Months or Most Recently Relevant to Health Maintenance Care Teams Enterprise Data Architect Relationship Specialty Start Date End Date Unknown, Provider, PCP - General 01/10/23
[2023-12-21 08:25] LABS: Calculated LDL 145 mg/dL (<100); Cholesterol 209 mg/dL (<200); HDL Cholesterol 52 mg/dL (40-60); Triglyceride 64 mg/dL (<150)
== END 2023-12-21 02:08 | disposition home or self-care (01) ==
LOC: LBO 02:08
PROVIDERS: PCP Physician Assistant; Visit Provider Physician Assistant
DX: E78.5 Hyperlipidemia, unspecified (principal)
CPT/HCPCS: 36415; 80061

== ENCOUNTER 2024-06-11 19:10 | Outpatient (REF) | payer OTHER, SELFPAY ==
[2024-06-11 16:52] LABS: Calculated LDL 146 mg/dL (<100); Cholesterol 213 mg/dL (<200); HDL Cholesterol 49 mg/dL (>or=40); Triglyceride 93 mg/dL (<150)
[2024-06-11 22:46] LABS: PSA, Screening 0.5 ng/mL (<=3.5)
== END 2024-06-11 19:11 | disposition home or self-care (01) ==
LOC: NCHCN 19:10
PROVIDERS: PCP Physician Assistant; Visit Provider Physician Assistant
DX: Z12.5 Encounter for screening for malignant neoplasm of prostate (principal); E78.5 Hyperlipidemia, unspecified
CPT/HCPCS: 80061; 84153

== ENCOUNTER 2024-06-14 11:17 | Outpatient (REF) | payer OTHER, SELFPAY | END 2024-06-14 11:18 | disposition home or self-care (01) | LOC: LBN 11:17 | PROVIDERS: PCP Physician Assistant; Visit Provider Physician Assistant | DX: L98.9 Disorder of the skin and subcutaneous tissue, unspecified (principal); L02.91 Cutaneous abscess, unspecified | CPT/HCPCS: 87077; 87070; 87186; 87205 ==